=== PATIENT | male | born 1960 | race African-American/Black ===

== ENCOUNTER 2017-12-24 13:17 | Inpatient (IN) | payer SELFPAY ==
[~2017-12-24] VITALS: Ht 175.3 cm; Wt 74.8 kg
[2017-12-24 16:20] LABS: HEMATOCRIT. 40.9 % (42.0-52.0); HEMOGLOBIN. 14.1 g/dL (14.0-18.0); MEAN CORPUSCULAR HEMOGLOBIN 33.2 pg (28.0-32.0); MEAN CORPUSCULAR VOLUME 96.3 fL (80.0-94.0); MEAN PLATELET VOLUME 9.7 fl (7.4-10.4); PLATELET 229 x1000/uL (130-400); RED BLOOD CELL COUNT 4.25 mill/uL (4.7-6.1); RED CELL DISTRIBUTION WIDTH 13.7 % (11.6-14.6)
[2017-12-24 16:21] LABS: CHLORIDE 98 mEq/L (98-107)
[2017-12-24 16:23] LABS: INR 1.1; PROTHROMBIN TIME 11.6 sec (9.4-11.6)
[2017-12-24 17:39] LABS: PLATELET ESTIMATE NORMAL
[2017-12-24 22:19] LABS: CLARITY URINE CLOUDY (CLEAR); COLOR URINE YELLOW (YELLOW); KETONES URINE NEGATIVE (NEGATIVE); LEUKOCYTE ESTERASE URINE 1+ (NEGATIVE); NITRITE URINE NEGATIVE (NEGATIVE); OCCULT BLOOD URINE 2+ (NEGATIVE); PROTEIN URINE 2+ (NEGATIVE); SPECIFIC GRAVITY URINE 1.018 (1.005-1.030)
[2017-12-24] MEDS ORDERED: ONDANSETRON HCL 4MG/2ML VIAL IV STA (22:29)
[2017-12-24] MEDS ORDERED: SODIUM CHLORIDE 0.9% 1,000 ML IV ONE (22:29)
[2017-12-24] MEDS ORDERED: MORPHINE SULFATE 4 MG/ML CPJ (NOT FOR IM USE) IV STA (22:29)
[2017-12-24] MEDS ORDERED: LEVOFLOXACIN 750MG PREMIX 150 ML IV ONE (22:30)
[2017-12-24] MEDS ORDERED: DIPHENHYDRAMINE 50MG/ML VIAL IV PRN (23:30)
[2017-12-24] MEDS ORDERED: ACETAMINOPHEN 325MG TABLET PO PRN (23:30)
[2017-12-24] MEDS ORDERED: LEVOFLOXACIN 500MG PREMIX 100 ML IV SCH (23:30)
[2017-12-24] MEDS ORDERED: IPRATROPIUM/ALBUTEROL 0.5-3(2.5)MG/3ML NEB INH PRN (23:30)
[2017-12-24] MEDS ORDERED: GUAIFENESIN 200MG/10ML SUGAR FREE UDC PO PRN (23:30)
[2017-12-24] MEDS ORDERED: CLONIDINE 0.1MG TABLET PO PRN (23:30)
[2017-12-24] MEDS ORDERED: ONDANSETRON HCL 4MG/2ML VIAL IV PRN (23:30)
[2017-12-25] VITALS (7 sets, daily range): BP systolic 127–183; BP diastolic 79–94
[2017-12-25] MEDS: IPRATROPIUM/ALBUTEROL 0.5-3(2.5)MG/3ML NEB HHN SCH ×6 (04:50→23:50)
[2017-12-25 06:58] LABS: HEMATOCRIT. 37.9 % (42.0-52.0); HEMOGLOBIN. 13.1 g/dL (14.0-18.0); MEAN CORPUSCULAR HEMOGLOBIN 33.4 pg (28.0-32.0); MEAN CORPUSCULAR VOLUME 96.3 fL (80.0-94.0); MEAN PLATELET VOLUME 9.7 fl (7.4-10.4); PLATELET 226 x1000/uL (130-400); RED BLOOD CELL COUNT 3.93 mill/uL (4.7-6.1); RED CELL DISTRIBUTION WIDTH 13.4 % (11.6-14.6)
[2017-12-25] MEDS: SODIUM CHLORIDE 0.9% INJ 3ML FLUSH IVF SCH ×3 (08:32→23:25)
[2017-12-25] MEDS: AMLODIPINE 5MG TABLET PO SCH ×2 (08:33→21:01)
[2017-12-25] MEDS: GUAIFENESIN 600MG ER TABLET PO SCH ×2 (08:33→21:00)
[2017-12-25] MEDS: LISINOPRIL 10MG TABLET PO SCH ×2 (08:33→21:00)
[2017-12-25] MEDS: ENOXAPARIN 40MG/0.4ML SYR SUBCUT SCH (08:34)
[2017-12-25] MEDS ORDERED: PNEUMOCOCCAL 23-VAL P-SAC VAC 0.5 ML IM ONE (12:00)
[2017-12-25 12:27] LABS: PLATELET ESTIMATE NORMAL
[2017-12-25] MEDS ORDERED: LORAZEPAM 2MG/ML CPJ IV PRN (18:00)
[2017-12-25] MEDS ORDERED: THIAMINE HCL 100MG TABLET PO NR (18:00)
[2017-12-25] MEDS ORDERED: NICOTINE 21MG PATCH TD NR (20:00)
[2017-12-25] MEDS: DEXT 5%/0.45% NACL KCL 20MEQ/L 1,000 ML IV SCH (20:58)
[2017-12-25] MEDS ORDERED: LEVOFLOXACIN 250MG PREMIX 50 ML IV SCH (23:00)
[2017-12-25] MEDS: BUDESONIDE 0.5MG/2ML NEB HHN SCH (23:50)
[2017-12-26] VITALS: BP 159/88
[2017-12-26] MEDS: IPRATROPIUM/ALBUTEROL 0.5-3(2.5)MG/3ML NEB HHN SCH ×5 (03:56→20:49)
[2017-12-26 04:00] VITALS: BP 147/80
[2017-12-26] MEDS: SODIUM CHLORIDE 0.9% INJ 3ML FLUSH IVF SCH ×3 (06:17→21:39)
[2017-12-26] MEDS: DEXT 5%/0.45% NACL KCL 20MEQ/L 1,000 ML IV SCH ×2 (06:18→16:13)
[2017-12-26 06:22] LABS: HEMATOCRIT. 36.4 % (42.0-52.0); HEMOGLOBIN. 12.3 g/dL (14.0-18.0); MEAN CORPUSCULAR HEMOGLOBIN 32.6 pg (28.0-32.0); MEAN CORPUSCULAR VOLUME 96.4 fL (80.0-94.0); MEAN PLATELET VOLUME 9.3 fl (7.4-10.4); PLATELET 243 x1000/uL (130-400); RED BLOOD CELL COUNT 3.77 mill/uL (4.7-6.1); RED CELL DISTRIBUTION WIDTH 13.7 % (11.6-14.6)
[2017-12-26 07:12] LABS: PHOSPHORUS 2.2 mg/dL (2.5-4.9)
[2017-12-26 08:00] VITALS: BP 146/98
[2017-12-26] MEDS: ENOXAPARIN 40MG/0.4ML SYR SUBCUT SCH (08:42)
[2017-12-26] MEDS: AMLODIPINE 5MG TABLET PO SCH ×2 (08:43→21:37)
[2017-12-26] MEDS: THIAMINE HCL 100MG TABLET PO SCH (08:43)
[2017-12-26] MEDS: MULTIVITAMINS,THER W-MINERALS TABLET PO SCH (08:43)
[2017-12-26] MEDS: LISINOPRIL 10MG TABLET PO SCH ×2 (08:44→21:36)
[2017-12-26] MEDS: FOLIC ACID 1MG TABLET PO SCH (08:44)
[2017-12-26] MEDS: GUAIFENESIN 600MG ER TABLET PO SCH ×2 (08:44→21:36)
[2017-12-26] MEDS: NICOTINE 21MG PATCH TD SCH (08:45)
[2017-12-26] MEDS: BUDESONIDE 0.5MG/2ML NEB HHN SCH ×2 (08:54→20:50)
[2017-12-26 12:00] VITALS: BP 156/78
[2017-12-26] MEDS ORDERED: POTASSIUM PHOS,M-BASIC-D-BASIC 20 MMOL in DEXT 5% WATER 243.3333 ML IV SCH (13:00)
[2017-12-26 16:00] VITALS: BP 147/90
[2017-12-26 17:15] LABS: PLATELET ESTIMATE NORMAL
[2017-12-26] MEDS: LEVOFLOXACIN 500MG PREMIX 100 ML IV SCH (18:54)
[2017-12-26 20:00] VITALS: BP 165/95
[2017-12-27] VITALS: BP 157/87
[2017-12-27] MEDS: IPRATROPIUM/ALBUTEROL 0.5-3(2.5)MG/3ML NEB HHN SCH ×5 (00:58→16:35)
[2017-12-27 04:00] VITALS: BP 161/84
[2017-12-27] MEDS: SODIUM CHLORIDE 0.9% INJ 3ML FLUSH IVF SCH ×2 (06:21→14:00)
[2017-12-27 08:00] VITALS: BP 150/70
[2017-12-27] MEDS: BUDESONIDE 0.5MG/2ML NEB HHN SCH (08:26)
[2017-12-27] MEDS: AMLODIPINE 5MG TABLET PO SCH (08:30)
[2017-12-27] MEDS: ENOXAPARIN 40MG/0.4ML SYR SUBCUT SCH (08:30)
[2017-12-27] MEDS: LISINOPRIL 10MG TABLET PO SCH (08:30)
[2017-12-27] MEDS: GUAIFENESIN 600MG ER TABLET PO SCH (08:31)
[2017-12-27] MEDS: NICOTINE 21MG PATCH TD SCH (08:31)
[2017-12-27] MEDS: MULTIVITAMINS,THER W-MINERALS TABLET PO SCH (08:31)
[2017-12-27] MEDS: FOLIC ACID 1MG TABLET PO SCH (08:31)
[2017-12-27] MEDS: THIAMINE HCL 100MG TABLET PO SCH (08:31)
[2017-12-27 12:00] VITALS: BP_DIAS 86
[2017-12-27 16:00] VITALS: BP 150/87
[2017-12-27 16:38] VITALS: BP 150/87
[2017-12-27] MEDS: LEVOFLOXACIN 500MG PREMIX 100 ML IV SCH (18:00)
== END 2017-12-27 18:45 | disposition home or self-care (01) | DRG 720 ==
LOC: ER 15:35 → 6EST 22:57 → EDBEDREQ 22:59 → EDBEDREQTM 22:59 → ENRESERV 23:03
PROVIDERS: ADMIT Internal Medicine; ATTEND Internal Medicine
DX: A41.51 Sepsis due to Escherichia coli [E. coli] (principal); J96.00 Acute respiratory failure, unspecified whether with hypoxia or hypercapnia; E43 Unspecified severe protein-calorie malnutrition; J15.9 Unspecified bacterial pneumonia; N17.9 Acute kidney failure, unspecified; E86.0 Dehydration; F17.210 Nicotine dependence, cigarettes, uncomplicated; I12.9 Hypertensive chronic kidney disease with stage 1 through stage 4 chronic kidney disease, or unspecified chronic kidney disease; F12.90 Cannabis use, unspecified, uncomplicated; J20.9 Acute bronchitis, unspecified; J44.0 Chronic obstructive pulmonary disease with (acute) lower respiratory infection; J44.1 Chronic obstructive pulmonary disease with (acute) exacerbation; N18.9 Chronic kidney disease, unspecified; N28.1 Cyst of kidney, acquired; N20.0 Calculus of kidney; F19.10 Other psychoactive substance abuse, uncomplicated
CPT/HCPCS: 36415; 71045; 71250; 76700; 80048; 80053; 81003; 83605; 83690; 83735; 84100; 85025; 85610; 87040; 87077; 87186; 94640; J1650; J1956; J3490; J7030; J7060; J7620; J7626

== ENCOUNTER 2018-03-03 12:17 | Emergency (ER) | payer SELFPAY ==
[~2018-03-03] VITALS: Ht 185.4 cm; Wt 86.0 kg
[2018-03-03 14:36] LABS: BASOPHILS % 1.2 % (0.0-2.0); EOSINOPHILS % 0.9 % (0.0-5.0); HEMATOCRIT. 40.1 % (42.0-52.0); HEMOGLOBIN. 13.4 g/dL (14.0-18.0); LYMPHOCYTES % 31.9 % (20.0-50.0); MEAN CORPUSCULAR HEMOGLOBIN 32.7 pg (28.0-32.0); MEAN CORPUSCULAR VOLUME 97.7 fL (80.0-94.0); MEAN PLATELET VOLUME 8.5 fl (7.4-10.4); MONOCYTES % 6.6 % (2.0-8.0); NEUTROPHILS % 59.4 % (40.0-76.0); PLATELET 235 x1000/uL (130-400); RED CELL DISTRIBUTION WIDTH 15.1 % (11.6-14.6)
[2018-03-03 14:43] LABS: INR 1.1
[2018-03-03 15:01] LABS: CHLORIDE 109 mEq/L (98-107)
[2018-03-03 15:02] LABS: CLARITY URINE CLEAR (CLEAR); COLOR URINE YELLOW (YELLOW); KETONES URINE TRACE (NEGATIVE); LEUKOCYTE ESTERASE URINE 2+ (NEGATIVE); NITRITE URINE NEGATIVE (NEGATIVE); OCCULT BLOOD URINE NEGATIVE (NEGATIVE); PH URINE 5.5 (4.5-8.0); PROTEIN URINE TRACE (NEGATIVE); SPECIFIC GRAVITY URINE 1.021 (1.005-1.030); UROBILINOGEN URINE 0.2 E.U./dL (0.2-1.0)
[2018-03-03 15:36] LABS: *AMPHETAMINES SCREEN URINE NEGATIVE (NEGATIVE); *BARBITURATES SCREEN URINE NEGATIVE (NEGATIVE); *COCAINE SCREEN URINE NEGATIVE (NEGATIVE); CANNABINOID URINE SCREEN PRESUMTIVE POSITIVE (NEGATIVE); METHADONE URINE SCREEN NEGATIVE (NEGATIVE); OPIATES URINE SCREEN NEGATIVE (NEGATIVE); PHENCYCLIDINE URINE SCREEN NEGATIVE (NEGATIVE)
[2018-03-03 15:37] LABS: *BENZODIAZEPINES SCREEN URINE NEGATIVE (NEGATIVE)
[2018-03-03] MEDS ORDERED: SULFAMETHOXAZOLE/TRIMETHOPRIM 800/160MG TABLET PO ONE (17:00)
[2018-03-03] MEDS ORDERED: LISINOPRIL 10MG TABLET PO ONE (17:15)
[2018-03-03 17:27] VITALS: BP 140/97
== END 2018-03-03 17:31 | disposition home or self-care (01) ==
LOC: ER 13:21
DX: N39.0 Urinary tract infection, site not specified (principal); F12.10 Cannabis abuse, uncomplicated; R11.2 Nausea with vomiting, unspecified; I10 Essential (primary) hypertension; R51 Headache; D64.9 Anemia, unspecified; E87.8 Other disorders of electrolyte and fluid balance, not elsewhere classified; I50.9 Heart failure, unspecified; N17.0 Acute kidney failure with tubular necrosis; R82.71 Bacteriuria; R82.4 Acetonuria; R82.90 Unspecified abnormal findings in urine; R74.8 Abnormal levels of other serum enzymes; R91.8 Other nonspecific abnormal finding of lung field; F17.200 Nicotine dependence, unspecified, uncomplicated
CPT/HCPCS: 36415; 70450; 71045; 80053; 80305; 81003; 83036; 83880; 84484; 85025; 85610; 87040; 87086; 93005; 99285

== ENCOUNTER 2019-03-07 21:13 | Emergency (ER) | payer SELFPAY ==
[~2019-03-07] VITALS: Ht 165.1 cm; Wt 83.0 kg
[2019-03-08 00:12] LABS: EOSINOPHILS % 0.5 % (0.0-5.0); HEMATOCRIT. 44.8 % (42.0-52.0); HEMOGLOBIN. 15.3 g/dL (14.0-18.0); LYMPHOCYTES % 21.2 % (20.0-50.0); MEAN CORPUSCULAR VOLUME 99.6 fL (80.0-94.0); MEAN PLATELET VOLUME 8.1 fl (7.4-10.4); MONOCYTES % 8.6 % (2.0-8.0); NEUTROPHILS % 68.7 % (40.0-76.0); PLATELET 251 x1000/uL (130-400); RED CELL DISTRIBUTION WIDTH 12.5 % (11.6-14.6)
[2019-03-08 00:19] LABS: CHLORIDE 94 mEq/L (98-107)
[2019-03-08 00:22] LABS: PROTHROMBIN TIME 10.2 sec (9.6-11.0)
[2019-03-08 00:23] LABS: ETHANOL BLOOD < 10 mg/dL
[2019-03-08 00:44] LABS: CLARITY URINE CLEAR (CLEAR); COLOR URINE DARK YELLOW (YELLOW); KETONES URINE 2+ (NEGATIVE); LEUKOCYTE ESTERASE URINE NEGATIVE (NEGATIVE); NITRITE URINE NEGATIVE (NEGATIVE); OCCULT BLOOD URINE NEGATIVE (NEGATIVE); PROTEIN URINE TRACE (NEGATIVE); SPECIFIC GRAVITY URINE 1.025 (1.005-1.030)
[2019-03-08 01:18] VITALS: BP 210/104
[2019-03-08] MEDS ORDERED: IOHEXOL-300 100 ML BOTTLE ONE (01:41)
== END 2019-03-08 03:02 | disposition home or self-care (01) ==
LOC: ER 21:13
DX: K59.00 Constipation, unspecified (principal); I10 Essential (primary) hypertension; F17.210 Nicotine dependence, cigarettes, uncomplicated; F12.90 Cannabis use, unspecified, uncomplicated
CPT/HCPCS: 36415; 74177; 80053; 80320; 81003; 83690; 85025; 85610; 99284; Q9967; Z7610; G0480

== ENCOUNTER 2019-03-21 09:17 | Emergency (ER) | payer SELFPAY ==
[~2019-03-21] VITALS: Ht 172.7 cm; Wt 62.5 kg
[2019-03-21 09:50] VITALS: BP 187/109
[2019-03-21] MEDS ORDERED: LACTULOSE 20G/30ML UDC PO ONE (10:00)
[2019-03-21] MEDS ORDERED: MAGNESIUM CITRATE 300ML SOLUTION PO ONE (10:00)
[2019-03-21 10:07] LABS: BASOPHILS % 0.9 % (0.0-2.0); EOSINOPHILS % 0.2 % (0.0-5.0); HEMATOCRIT. 41.8 % (42.0-52.0); HEMOGLOBIN. 14.2 g/dL (14.0-18.0); LYMPHOCYTES % 29.3 % (20.0-50.0); MEAN CORPUSCULAR HEMOGLOBIN 33.8 pg (28.0-32.0); MEAN CORPUSCULAR VOLUME 99.4 fL (80.0-94.0); MEAN PLATELET VOLUME 7.8 fl (7.4-10.4); MONOCYTES % 6.8 % (2.0-8.0); NEUTROPHILS % 62.8 % (40.0-76.0); PLATELET 341 x1000/uL (130-400); RED CELL DISTRIBUTION WIDTH 12.7 % (11.6-14.6)
[2019-03-21 10:13] LABS: CHLORIDE 105 mEq/L (98-107)
[2019-03-21 10:14] LABS: PROTHROMBIN TIME 10.8 sec (9.6-11.0)
[2019-03-21 10:29] LABS: CLARITY URINE CLEAR (CLEAR); COLOR URINE DARK YELLOW (YELLOW); KETONES URINE 1+ (NEGATIVE); LEUKOCYTE ESTERASE URINE NEGATIVE (NEGATIVE); NITRITE URINE NEGATIVE (NEGATIVE); OCCULT BLOOD URINE NEGATIVE (NEGATIVE); PH URINE 5.5 (4.5-8.0); PROTEIN URINE 1+ (NEGATIVE); SPECIFIC GRAVITY URINE 1.035 (1.005-1.030)
[2019-03-21] MEDS ORDERED: ACETAMINOPHEN 325MG TABLET PO ONE (11:30)
== END 2019-03-21 12:53 | disposition home or self-care (01) ==
LOC: ER 09:17
DX: G89.29 Other chronic pain (principal); R10.84 Generalized abdominal pain; I10 Essential (primary) hypertension; F12.10 Cannabis abuse, uncomplicated
CPT/HCPCS: 36415; 74018; 99284

== ENCOUNTER 2019-04-03 18:51 | Inpatient (IN) | payer SELFPAY ==
[~2019-04-03] VITALS: Ht 175.3 cm; Wt 57.2 kg
[2019-04-03] MEDS ORDERED: ONDANSETRON HCL 4MG/2ML INJ IV ONE (19:15)
[2019-04-03] MEDS ORDERED: SODIUM CHLORIDE 0.9% 1,000 ML IV ONE (19:15)
[2019-04-03 19:55] LABS: BASOPHILS % 0.2 % (0.0-2.0); EOSINOPHILS % 0.2 % (0.0-5.0); LYMPHOCYTES % 25.9 % (20.0-50.0); MEAN CORPUSCULAR HEMOGLOBIN 34.1 pg (28.0-32.0); MEAN CORPUSCULAR VOLUME 99.6 fL (80.0-94.0); MEAN PLATELET VOLUME 7.3 fl (7.4-10.4); MONOCYTES % 4.2 % (2.0-8.0); NEUTROPHILS % 69.5 % (40.0-76.0); PLATELET 461 x1000/uL (130-400); RED BLOOD CELL COUNT 1.95 mill/uL (4.7-6.1); RED CELL DISTRIBUTION WIDTH 12.6 % (11.6-14.6)
[2019-04-03 19:59] LABS: CHLORIDE 105 mEq/L (98-107); HEMATOCRIT. 19.4 % (42.0-52.0); HEMOGLOBIN. 6.6 g/dL (14.0-18.0)
[2019-04-03 20:00] LABS: INR 1.1; PROTHROMBIN TIME 10.9 sec (9.6-11.0)
[2019-04-03] MEDS ORDERED: MORPHINE SULFATE 4 MG/ML CPJ (NOT FOR IM USE) IV ONE (20:15)
[2019-04-03] MEDS ORDERED: PANTOPRAZOLE SODIUM 40 MG/VIAL IV NR (21:00)
[2019-04-03] MEDS ORDERED: ONDANSETRON HCL 4MG/2ML INJ IV PRN (21:30)
[2019-04-03] MEDS ORDERED: GUAIFENESIN 200MG/10ML SUGAR FREE UDC PO PRN (21:30)
[2019-04-03] MEDS ORDERED: IPRATROPIUM/ALBUTEROL 0.5-3(2.5)MG/3ML NEB INH PRN (21:30)
[2019-04-03] MEDS ORDERED: DOCUSATE SODIUM 100MG CAPSULE PO PRN (21:30)
[2019-04-03] MEDS ORDERED: ZOLPIDEM TARTRATE 5MG TABLET PO PRN (21:30)
[2019-04-03] MEDS ORDERED: ACETAMINOPHEN 325MG TABLET PO PRN (21:30)
[2019-04-03] MEDS ORDERED: LORAZEPAM 0.5MG TABLET PO PRN (21:30)
[2019-04-03] MEDS ORDERED: TRAMADOL 50MG TABLET PO PRN (21:30)
[2019-04-03] MEDS ORDERED: MAGNESIUM/ALUMINUM HYDROXIDE/SIMETHICONE 30ML UDC PO PRN (21:30)
[2019-04-03] MEDS ORDERED: CLONIDINE 0.1MG TABLET PO PRN (21:30)
[2019-04-03] MEDS ORDERED: MORPHINE SULFATE 2 MG/ML CPJ (NOT FOR IM USE) IV PRN (21:30)
[2019-04-03 22:10] LABS: ETHANOL BLOOD < 10 mg/dL
[2019-04-03 22:13] LABS: TOTAL IRON BINDING CAPACITY 173 ug/dL (250-450)
[2019-04-03 22:28] LABS: FOLIC ACID (FOLATE) SERUM 6.6 ng/mL (>5.38)
[2019-04-04] VITALS (15 sets, daily range): BP systolic 118–168; BP diastolic 65–95
[2019-04-04] MEDS ORDERED: MVI, ADULT NO.1 10 ML, FOLIC ACID 1 MG, THIAMINE HCL 100 MG in SODIUM CHLORIDE 0.9% 1,0... IV NR ×4 (02:00)
[2019-04-04] MEDS ORDERED: OCTREOTIDE 1,000 MCG in SODIUM CHLORIDE 0.9% 100 ML IV SCH ×4 (03:00)
[2019-04-04] MEDS ORDERED: PANTOPRAZOLE 80 MG in SODIUM CHLORIDE 0.9% 100 ML IV SCH ×4 (03:00)
[2019-04-04 09:36] LABS: HEMATOCRIT 18.1 % (42.0-52.0); HEMOGLOBIN 6.2 g/dL (14.0-18.0)
[2019-04-04] MEDS ORDERED: FENTANYL CITRATE/PF 50MCG/ML 2ML VIAL ONE (13:27)
[2019-04-04] MEDS ORDERED: MIDAZOLAM HCL 2 MG/2 ML VIAL ONE (13:27)
[2019-04-04] MEDS ORDERED: PROPOFOL 200MG/20ML VIAL IV ONE (13:27)
[2019-04-04] MEDS ORDERED: LIDOCAINE HCL/PF 1% 10 MG/ML 5ML VIAL ONE (13:27)
[2019-04-04] MEDS ORDERED: DIPHENHYDRAMINE 50MG/ML VIAL ONE (13:27)
[2019-04-04 13:34] LABS: CLARITY URINE CLEAR (CLEAR); COLOR URINE YELLOW (YELLOW); KETONES URINE NEGATIVE (NEGATIVE); LEUKOCYTE ESTERASE URINE NEGATIVE (NEGATIVE); NITRITE URINE NEGATIVE (NEGATIVE); OCCULT BLOOD URINE NEGATIVE (NEGATIVE); PROTEIN URINE NEGATIVE (NEGATIVE); SPECIFIC GRAVITY URINE 1.021 (1.005-1.030); UROBILINOGEN URINE 0.2 E.U./dL (0.2-1.0)
[2019-04-04 14:40] LABS: *AMPHETAMINES SCREEN URINE NEGATIVE (NEGATIVE); *BARBITURATES SCREEN URINE NEGATIVE (NEGATIVE); *BENZODIAZEPINES SCREEN URINE NEGATIVE (NEGATIVE); *COCAINE SCREEN URINE NEGATIVE (NEGATIVE); CANNABINOID URINE SCREEN PRESUMTIVE POSITIVE (NEGATIVE); METHADONE URINE SCREEN NEGATIVE (NEGATIVE); OPIATES URINE SCREEN PRESUMTIVE POSITIVE (NEGATIVE)
[2019-04-04 14:41] LABS: PHENCYCLIDINE URINE SCREEN NEGATIVE (NEGATIVE)
[2019-04-04] MEDS: DEXT 5%/LACTATED RINGERS 1,000 ML IV SCH (17:38)
[2019-04-04] MEDS: SUCRALFATE 1G TABLET PO SCH ×2 (17:49→21:33)
[2019-04-04 18:07] LABS: HEMATOCRIT 21.6 % (42.0-52.0); HEMOGLOBIN 7.5 g/dL (14.0-18.0)
[2019-04-04 18:16] LABS: INR 1.1; PROTHROMBIN TIME 10.8 sec (9.6-11.0)
[2019-04-04] MEDS: PANTOPRAZOLE SODIUM 40 MG/VIAL IV SCH (21:33)
[2019-04-05] VITALS (7 sets, daily range): BP systolic 124–162; BP diastolic 75–90
[2019-04-05] MEDS: SUCRALFATE 1G TABLET PO SCH ×4 (05:58→20:55)
[2019-04-05] MEDS: DEXT 5%/LACTATED RINGERS 1,000 ML IV SCH ×3 (05:58→21:21)
[2019-04-05] MEDS: PANTOPRAZOLE SODIUM 40 MG/VIAL IV SCH ×2 (08:51→20:55)
[2019-04-05 10:08] LABS: CHLORIDE 109 mEq/L (98-107)
[2019-04-05 10:10] LABS: BASOPHILS % 0.4 % (0.0-2.0); EOSINOPHILS % 0.6 % (0.0-5.0); HEMOGLOBIN. 8.9 g/dL (14.0-18.0); MEAN CORPUSCULAR HEMOGLOBIN 30.4 pg (28.0-32.0); MEAN PLATELET VOLUME 7.6 fl (7.4-10.4); MONOCYTES % 6.2 % (2.0-8.0); NEUTROPHILS % 71.8 % (40.0-76.0); PLATELET 398 x1000/uL (130-400); RED BLOOD CELL COUNT 2.93 mill/uL (4.7-6.1); RED CELL DISTRIBUTION WIDTH 21.1 % (11.6-14.6)
[2019-04-05] MEDS: IRON SUCROSE COMPLEX 100 MG/5 ML ML IV SCH (11:41)
[2019-04-05] MEDS ORDERED: IOHEXOL-300 100 ML BOTTLE ONE ×2 (12:06→19:32)
[2019-04-05] MEDS ORDERED: DIATR MEGLU/DIATRIZOATE SOLN 30ML PO SCH (15:45)
[2019-04-06] VITALS: BP 142/79
[2019-04-06 04:00] VITALS: BP 161/88
[2019-04-06] MEDS: SUCRALFATE 1G TABLET PO SCH ×4 (07:10→20:54)
[2019-04-06 08:00] VITALS: BP 159/95
[2019-04-06] MEDS: PANTOPRAZOLE SODIUM 40 MG/VIAL IV SCH ×2 (08:39→20:54)
[2019-04-06] MEDS: IRON SUCROSE COMPLEX 100 MG/5 ML ML IV SCH (08:39)
[2019-04-06 09:38] LABS: BASOPHILS % 0.6 % (0.0-2.0); EOSINOPHILS % 0.5 % (0.0-5.0); HEMATOCRIT. 29.1 % (42.0-52.0); HEMOGLOBIN. 9.9 g/dL (14.0-18.0); LYMPHOCYTES % 22.1 % (20.0-50.0); MEAN CORPUSCULAR HEMOGLOBIN 30.9 pg (28.0-32.0); MEAN CORPUSCULAR VOLUME 90.6 fL (80.0-94.0); MEAN PLATELET VOLUME 8.4 fl (7.4-10.4); MONOCYTES % 6.6 % (2.0-8.0); NEUTROPHILS % 70.2 % (40.0-76.0); PLATELET 372 x1000/uL (130-400); RED BLOOD CELL COUNT 3.21 mill/uL (4.7-6.1)
[2019-04-06 09:50] LABS: PARTIAL THROMBOPLASTIN TIME 23.6 sec (23.4-31.0); PROTHROMBIN TIME 10.7 sec (9.6-11.0)
[2019-04-06 09:58] LABS: CHLORIDE 104 mEq/L (98-107)
[2019-04-06] MEDS ORDERED: MIDAZOLAM HCL 5 MG/5 ML VIAL ONE (10:36)
[2019-04-06] MEDS ORDERED: FENTANYL CITRATE/PF 50MCG/ML 2ML VIAL ONE (10:36)
[2019-04-06] MEDS ORDERED: SIMETHICONE 40 MG/0.6 ML 30ML ONE (10:37)
[2019-04-06 12:00] VITALS: BP 141/87
[2019-04-06 16:00] VITALS: BP 131/87
[2019-04-06] MEDS: DEXT 5%/LACTATED RINGERS 1,000 ML IV SCH (16:25)
[2019-04-06 20:00] VITALS: BP 146/87
[2019-04-07] VITALS: BP 134/82
[2019-04-07 04:00] VITALS: BP 147/80
[2019-04-07 08:00] VITALS: BP 148/92
[2019-04-07] MEDS: PANTOPRAZOLE SODIUM 40 MG/VIAL IV SCH (08:22)
[2019-04-07 08:57] LABS: PARTIAL THROMBOPLASTIN TIME 23.9 sec (23.4-31.0); PROTHROMBIN TIME 10.7 sec (9.6-11.0)
[2019-04-07 08:58] LABS: BASOPHILS % 0.6 % (0.0-2.0); EOSINOPHILS % 0.7 % (0.0-5.0); HEMATOCRIT. 27.9 % (42.0-52.0); HEMOGLOBIN. 9.6 g/dL (14.0-18.0); LYMPHOCYTES % 24.8 % (20.0-50.0); MEAN CORPUSCULAR HEMOGLOBIN 30.6 pg (28.0-32.0); MEAN CORPUSCULAR VOLUME 89.4 fL (80.0-94.0); MEAN PLATELET VOLUME 7.6 fl (7.4-10.4); MONOCYTES % 8.6 % (2.0-8.0); NEUTROPHILS % 65.3 % (40.0-76.0); PLATELET 451 x1000/uL (130-400); RED BLOOD CELL COUNT 3.13 mill/uL (4.7-6.1); RED CELL DISTRIBUTION WIDTH 19.9 % (11.6-14.6)
[2019-04-07] MEDS: SUCRALFATE 1G TABLET PO SCH ×2 (10:07→12:51)
[2019-04-07 12:00] VITALS: BP 175/105
[2019-04-07 13:23] VITALS: BP 155/90
[2019-04-08 04:10] LABS: HIV SCREEN 4G Non Reactive (Non Reactive)
== END 2019-04-07 17:10 | disposition home or self-care (01) | DRG 241 ==
LOC: ER 20:32 → ENRESERV 04-04 00:54 → 8WST 04-04 01:28
PROVIDERS: ADMIT Internal Medicine; ATTEND Internal Medicine
PROC: 30233N1 Transfusion of Nonautologous Red Blood Cells into Peripheral Vein, Percutaneous Approach (ICD-10-PCS; 2019-04-03)
PROC: 0DJ08ZZ Inspection of Upper Intestinal Tract, Via Natural or Artificial Opening Endoscopic (ICD-10-PCS; 2019-04-04)
PROC: 0DB78ZX Excision of Stomach, Pylorus, Via Natural or Artificial Opening Endoscopic, Diagnostic (ICD-10-PCS; principal; 2019-04-06)
PROC: 0W9G3ZZ Drainage of Peritoneal Cavity, Percutaneous Approach (ICD-10-PCS; 2019-04-07)
DX: K25.4 Chronic or unspecified gastric ulcer with hemorrhage (principal); E43 Unspecified severe protein-calorie malnutrition; R18.8 Other ascites; E87.0 Hyperosmolality and hypernatremia; J43.9 Emphysema, unspecified; K92.1 Melena; K29.71 Gastritis, unspecified, with bleeding; K31.7 Polyp of stomach and duodenum; D62 Acute posthemorrhagic anemia; F10.20 Alcohol dependence, uncomplicated; D53.9 Nutritional anemia, unspecified; F17.210 Nicotine dependence, cigarettes, uncomplicated; I10 Essential (primary) hypertension; K44.9 Diaphragmatic hernia without obstruction or gangrene; Z68.1 Body mass index [BMI] 19.9 or less, adult; Z87.11 Personal history of peptic ulcer disease
CPT/HCPCS: 36415; 49083; 74177; 80305; 80320; 82040; 82607; 82746; 83036; 83540; 83550; 85014; 85018; 85049; 85384; 86850; 86900; 86920; 87389; 88108; 88305; 88312; 88313; 93970; 96361; 96374; 96375; 99291; C9113; J1200; J2250; J2270; J2354; J2405; J2704; J3010; J3411; J3490; J7030; J7040; J7050; P9016; Q9963; Q9967; G0480

== ENCOUNTER 2019-04-16 14:03 | Emergency (ER) | payer SELFPAY ==
[~2019-04-16] VITALS: Ht 175.3 cm; Wt 90.0 kg
[2019-04-16 16:32] LABS: BASOPHILS % 0.4 % (0.0-2.0); HEMOGLOBIN. 9.6 g/dL (14.0-18.0); LYMPHOCYTES % 25.3 % (20.0-50.0); MEAN CORPUSCULAR VOLUME 93.4 fL (80.0-94.0); MEAN PLATELET VOLUME 6.8 fl (7.4-10.4); MONOCYTES % 8.2 % (2.0-8.0); NEUTROPHILS % 65.1 % (40.0-76.0); PLATELET 465 x1000/uL (130-400); RED CELL DISTRIBUTION WIDTH 21.4 % (11.6-14.6)
[2019-04-16 16:39] LABS: CHLORIDE 110 mEq/L (98-107)
[2019-04-16 17:25] VITALS: BP 164/87
== END 2019-04-16 17:55 | disposition home or self-care (01) ==
LOC: ER 14:03
DX: R60.0 Localized edema (principal)
CPT/HCPCS: 36415; 93970; 99284

== ENCOUNTER 2021-05-04 10:57 | Emergency (ER) | payer SELFPAY ==
[~2021-05-04] VITALS: Ht 175.3 cm; Wt 82.0 kg
[2021-05-04] MEDS ORDERED: HYDRALAZINE 20MG/ML VIAL IV ONE (12:00)
[2021-05-04 12:14] LABS: BASOPHILS % 0.4 % (0.0-2.0); EOSINOPHILS % 0.1 % (0.0-5.0); HEMATOCRIT. 42.2 % (42.0-52.0); HEMOGLOBIN. 14.5 g/dL (14.0-18.0); LYMPHOCYTES % 22.6 % (20.0-50.0); MEAN CORPUSCULAR HEMOGLOBIN 33.2 pg (28.0-32.0); MEAN PLATELET VOLUME 8.8 fl (7.4-10.4); NEUTROPHILS % 68.9 % (40.0-76.0); PLATELET 244 x1000/uL (130-400); RED BLOOD CELL COUNT 4.35 mill/uL (4.7-6.1); RED CELL DISTRIBUTION WIDTH 13.3 % (11.6-14.6)
[2021-05-04] MEDS ORDERED: FAMOTIDINE 20MG/2ML VIAL IV ONE (12:15)
[2021-05-04] MEDS ORDERED: MAGNESIUM/ALUMINUM HYDROXIDE/SIMETHICONE 30ML UDC PO ONE (12:15)
[2021-05-04] MEDS ORDERED: VISCOUS LIDOCAINE 2% 15 ML UDC PO ONE (12:15)
[2021-05-04] MEDS ORDERED: OMEPRAZOLE 20MG CAPSULE EXTENDED RELEASE PO ONE (12:15)
[2021-05-04 12:20] LABS: CHLORIDE 102 mEq/L (98-107)
[2021-05-04 12:23] LABS: INR 1.1; PROTHROMBIN TIME 11.3 sec (9.6-11.0)
[2021-05-04 14:28] LABS: CLARITY URINE CLEAR (CLEAR); COLOR URINE YELLOW (YELLOW); KETONES URINE 1+ (NEGATIVE); LEUKOCYTE ESTERASE URINE NEGATIVE (NEGATIVE); NITRITE URINE NEGATIVE (NEGATIVE); OCCULT BLOOD URINE NEGATIVE (NEGATIVE); PROTEIN URINE 1+ (NEGATIVE); SPECIFIC GRAVITY URINE 1.017 (1.005-1.030)
[2021-05-04] MEDS ORDERED: OMEP40CA12 MT (15:23)
[2021-05-04] MEDS ORDERED: LISI10TA26 MT (15:23)
[2021-05-04] MEDS ORDERED: LISINOPRIL 10MG TABLET PO ONE (15:30)
[2021-05-04 15:55] VITALS: BP 188/99
== END 2021-05-04 15:57 | disposition home or self-care (01) ==
LOC: ER 10:57
DX: K29.70 Gastritis, unspecified, without bleeding (principal); I10 Essential (primary) hypertension
CPT/HCPCS: 36415; 76700; 80053; 81003; 83690; 85025; 85610; 96374; 96375; 99284; J0360; J3490